=== PATIENT | female | born 1935 | race African-American/Black ===

== ENCOUNTER → 2016-12-30 | Outpatient (CLI) | payer MEDICARE, OTHER ==
[~2016-12-30] MED LIST: ATEN50TA41 PO; DIGO125T PO; FERR325T18 PO; LEVO125T5 PO; ONDA4TAB7 PO; OXYC-306 PO; POTA25PA PO; WARF2TAB7 PO
== END | disposition home or self-care (01) ==
LOC: CFH 10:17
PROVIDERS: ATTEND Internal Medicine Cardiovascular Disease
DX: I08.3 Combined rheumatic disorders of mitral, aortic and tricuspid valves (principal); I77.819 Aortic ectasia, unspecified site; I48.91 Unspecified atrial fibrillation; I27.20 Pulmonary hypertension, unspecified; Z79.01 Long term (current) use of anticoagulants
CPT/HCPCS: 93306

== ENCOUNTER 2018-05-21 15:22 | Emergency (ER) | payer MEDICARE, OTHER ==
[~2018-05-21] VITALS: Ht 177.8 cm; Wt 110.5 kg
[~2018-05-21 15:22] MED LIST changes: -WARF2TAB7 PO; +WARF2TAB99 PO
--- NOTE | 2018-05-21 17:30 | NUR ---
Pt wheeled to room with EDT. Friend at bedside. VS rechecked, HTN noted, pt states she always has high blood pressure "at the doctors."
--- NOTE | 2018-05-21 17:36 | NUR ---
Dr. Landin at bedside to evaluate pt.
[2018-05-21] MEDS ORDERED: FURO20TA3 PO (17:38)
--- NOTE | 2018-05-21 17:52 | NUR ---
Lab at bedside.
[2018-05-21 18:15] LABS: INTERNATIONAL NORMALIZED RATIO 1.75 (0.93-1.1)
--- NOTE | 2018-05-21 18:25 | NUR ---
Dr. Landin at bedside to discuss ED findings and d/c information.
[2018-05-21 18:44] VITALS: BP 168/64
--- NOTE | 2018-05-21 18:45 | NUR ---
Pt wheeled to discharge area for safe discharge and comfort.
--- NOTE | 2018-05-21 18:45 | NUR ---
Patient/Caregiver given discharge instructions and they have confirmed that they understand the instructions. Patient ambulatory with steady gait.
== END 2018-05-21 18:45 | disposition home or self-care (01) ==
LOC: ED 18:20
DX: H11.31 Conjunctival hemorrhage, right eye (principal); I10 Essential (primary) hypertension; I48.91 Unspecified atrial fibrillation; Z86.39 Personal history of other endocrine, nutritional and metabolic disease
CPT/HCPCS: 36415; 85610; 85730; 99283